=== PATIENT | female | born 1990 | race African-American/Black ===

== ENCOUNTER 2017-02-26 13:48 | Emergency (ER) | payer OTHER ==
[~2017-02-26] VITALS: Ht 167.6 cm; Wt 122.5 kg
[2017-02-26 14:47] LABS: URINE BILIRUBIN NEGATIVE (Negative); URINE BLOOD NEGATIVE (Negative); URINE COLOR YELLOW; URINE GLUCOSE-RANDOM* NEGATIVE (Negative); URINE KETONES NEGATIVE (Negative); URINE LEUKOCYTES-REFLEX NEGATIVE (Negative); URINE PROTEIN (DIPSTICK) TRACE (Negative); URINE UROBILINOGEN 0.2 E.U./dl (0.2-1.0)
[2017-02-26 15:43] LABS: HEMATOCRIT 33.6 % (37.0-47.0); HEMOGLOBIN 11.5 gm/dL (12.0-15.0); MCH 28.1 pg (26.0-34.0); MCHC 34.2 g/dL (28.0-37.0); MCV 81.9 fL (80.0-100.0); PLATELET COUNT 131 thou/uL (150-400); RDW 12.9 % (10.5-14.5); WBC 15.3 thou/uL (4.0-11.0)
[2017-02-26 15:50] LABS: MANUAL DIFF YES
[2017-02-26 15:55] LABS: CALCIUM 8.3 mg/dL (8.5-10.1); CREATININE 0.7 mg/dL (0.6-1.0); POTASSIUM 3.8 mmol/L (3.5-5.1)
[2017-02-26 16:00] LABS: ALBUMIN 3.2 g/dL (3.4-5.0); TOTAL BILIRUBIN 0.4 mg/dL (<0.1-1.0); TOTAL PROTEIN 6.6 g/dL (6.4-8.2)
[2017-02-26 16:04] LABS: ABSOLUTE NEUTROPHILS 13.2 thou/uL (1.4-8.2); TOTAL CELL COUNT 100
[2017-02-26 16:05] LABS: LARGE PLATELETS SEVERAL
[2017-02-26] MEDS ORDERED: FLAGYL500 MG PO (16:56)
[2017-02-26 18:04] VITALS: BP 155/69
[2017-02-27] MEDS ORDERED: NAPROSYN500 MG PO (14:51)
[2017-02-27] MEDS ORDERED: DOXYCYCLINE 10100 MG PO (14:51)
[2017-02-28 16:13] LABS: CHLAMYDIA TRACHOMATIS-PCR Negative (Negative); NEISSERIA GONORRHEA-PCR Negative (Negative)
== END 2017-02-26 18:05 | disposition home or self-care (01) ==
LOC: ER 13:48
PROVIDERS: Physician Assistant
DX: K52.9 Noninfective gastroenteritis and colitis, unspecified (principal); N76.0 Acute vaginitis; D72.829 Elevated white blood cell count, unspecified; Z87.891 Personal history of nicotine dependence

== ENCOUNTER 2017-02-27 11:44 | Emergency (ER) | payer OTHER ==
[~2017-02-27] VITALS: Ht 165.1 cm; Wt 120.2 kg
[~2017-02-27 11:44] MED LIST: FLAGYL500 MG PO
[2017-02-27 14:25] LABS: BASOPHILS 0.1 % (0.0-2.0); HEMATOCRIT 33.5 % (37.0-47.0); HEMOGLOBIN 11.3 gm/dL (12.0-15.0); LYMPHOCYTES 11.2 % (24.0-44.0); MCH 28.1 pg (26.0-34.0); MCHC 33.8 g/dL (28.0-37.0); MCV 83.3 fL (80.0-100.0); MONOCYTES 3.7 % (1.0-8.0); PLATELET COUNT 138 thou/uL (150-400); RBC 4.03 mil/uL (4.20-5.00); RDW 12.8 % (10.5-14.5); WBC 9.4 thou/uL (4.0-11.0)
[2017-02-27 14:26] LABS: MANUAL DIFF NO
[2017-02-27 14:33] LABS: CALCIUM 8.3 mg/dL (8.5-10.1); CREATININE 0.8 mg/dL (0.6-1.0); POTASSIUM 3.3 mmol/L (3.5-5.1)
[2017-02-27 14:49] LABS: ALBUMIN 2.9 g/dL (3.4-5.0); TOTAL BILIRUBIN 0.5 mg/dL (<0.1-1.0); TOTAL PROTEIN 6.7 g/dL (6.4-8.2)
[2017-02-27] MEDS ORDERED: DOXYCYCLINE 10100 MG PO (14:51)
[2017-02-27] MEDS ORDERED: NAPROSYN500 MG PO (14:51)
[2017-02-27 15:20] VITALS: BP 142/80
== END 2017-02-27 15:20 | disposition home or self-care (01) ==
LOC: ER 11:44
PROVIDERS: Physician Assistant
DX: L03.116 Cellulitis of left lower limb (principal); Z87.891 Personal history of nicotine dependence